=== PATIENT | male | born 1970 | race Caucasian/White ===

== ENCOUNTER 2023-07-03 09:08 | Emergency (ER) | payer OTHER ==
[~2023-07-03] VITALS: Ht 175.3 cm; Wt 119.0 kg
[~2023-07-03 09:08] MED LIST: ASPIRIN EC81 MG PO; COZAAR100 MG PO; METFORMIN HCL1000 MG PO; MULTI VITAMIN1 EACH PO; NAPROSYN500 MG PO; OMEPRAZOLE20 MG PO; VENTOLIN HFA18 GM INH
[2023-07-03 09:36] LABS: BASOPHILS 0.6 % (0-2); EOSINOPHILS 2.1 % (0-6); HEMATOCRIT 46.7 % (35.0-50.0); HEMOGLOBIN 15.8 g/dL (12.0-18.0); LYMPHOCYTES 24.2 % (24-44); MCH 29.9 (27-36); MCHC 33.9 g/dl (30-36); MCV 88.2 fl (81-99); MONOCYTES 7.1 % (0-12); PLATELET COUNT 211 K/uL (140-440)
[2023-07-03] MEDS ORDERED: JARDIANCE25 MG PO (09:42)
[2023-07-03] MEDS ORDERED: GABAPENTIN300 MG PO (09:43)
[2023-07-03] MEDS ORDERED: OZEMPIC0.25 MG/02 SUB-Q (09:44)
[2023-07-03] MEDS ORDERED: LIPITOR40 MG PO (09:44)
[2023-07-03] MEDS ORDERED: METOPROLOL SUC100 MG PO (09:45)
[2023-07-03] MEDS ORDERED: LANTUS100 UNITS/ SUB-Q (09:47)
[2023-07-03 09:58] LABS: BILIRUBIN, URINE NEGATIVE (negative); BLOOD/HGB, URINE NEGATIVE (Negative); KETONE, URINE NEGATIVE (Negative); LEUK ESTERASE, URINE NEGATIVE (negative); NITRITE, URINE NEGATIVE (negative)
[2023-07-03 10:08] LABS: ALBUMIN 4.2 g/dL (3.4-5.0); ALBUMIN/GLOBULIN RATIO 1.24 (1.1-2.4); ANION GAP 12.4 (7-21); BUN/CREATININE RATIO 16.66 (6.0-28.6); CALCIUM 9.4 mg/dL (8.5-10.1); CREATININE, SERUM 0.78 mg/dL (0.70-1.30); MAGNESIUM 1.9 mg/dL (1.8-2.4); POTASSIUM 4.4 mmol/L (3.5-5.1); PROTEIN, TOTAL 7.6 g/dL (6.4-8.2)
[2023-07-03 10:09] LABS: BACTERIA, URINE RARE /hpf (negative); CASTS, URINE NONE SEEN \\lpf; COLLECTION TYPE, URINE CLEAN CATCH; CRYSTALS, URINE NONE SEEN (0-1+); EPITHELIAL CELLS, URINE 0 /lpf (0-1+); RED BLOOD CELLS, URINE 0-1 /hpf (0-5); REFLEX CULTURE, URINE No (No); WHITE BLOOD CELLS, URINE 0-1 /HPF (0-5)
[2023-07-03 10:20] LABS: INFLUENZA B NAA NEGATIVE (NEGATIVE); RESPIRATORY SYNCYTIAL VIR NAA NEGATIVE (NEGATIVE)
[2023-07-03] MEDS ORDERED: CLONIDINE HCL0.2 MG PO (10:50)
[2023-07-03 11:02] VITALS: BP 148/97
--- NOTE | 2023-07-04 05:47 | EKG ---
[facility] [address] [facility] [place], [place] [address] Signed Normal sinus rhythm Normal ECG No previous ECGs available Confirmed by POLLO BRAND MD ([id number]) on 07/04/2023 5:47:08 AM Electronically Signed By: POLLO BRAND 07/04/23 0547 PATIENT NAME: ZAIREELO COOPER JR Electrocardiogram DATE OF : 70 PHYSICIAN: POLLO BRAND REPORT #: [id number] REPORT IS CONFIDENTIAL AND NOT TO BE RELEASED WITHOUT AUTHORIZATION
== END 2023-07-03 11:03 | disposition home or self-care (01) ==
LOC: ED 09:08
PROVIDERS: Emergency Medicine
DX: I16.0 Hypertensive urgency (principal); I10 Essential (primary) hypertension; E11.9 Type 2 diabetes mellitus without complications; Z88.1 Allergy status to other antibiotic agents; Z91.013 Allergy to seafood; Z79.899 Other long term (current) drug therapy; Z79.84 Long term (current) use of oral hypoglycemic drugs; Z79.82 Long term (current) use of aspirin; Z79.4 Long term (current) use of insulin; Z20.822 Contact with and (suspected) exposure to COVID-19
CPT/HCPCS: 36415; 71045; 80053; 81001; 83735; 84484; 85025; 85379; 87502; 93005; 93010; 99285-25; A9270; U0002